=== PATIENT | female | born 1955 | race Caucasian/White ===

== ENCOUNTER 2018-10-16 12:45 | Emergency (ER) | payer MEDICAID ==
[2018-10-16] MEDS ORDERED: Acetaminophen 500 MG TAB ONE (13:12)
--- NOTE | 2018-10-16 13:17 | ED Physician Chart ---
ED Chief Complaint/HPI - Patient Information Date Seen:: 10/16/18 Time Seen:: 13:05 Chief Complaint:: dizziness History of Present Illness:: 5 days ago patient had a sharp right lower quadrant pain followed by headache and dizziness which she describes as a spinning sensation. The right lower quadrant pain has not recurred. Patient is ambulatory but sometimes needs some assistance with ambulation Vitals:: Vital Signs - 8 hr 10/16/18 12:54 HR 68 RR 18 BP 112/66 O2 Sat % 97 Historian:: Patient, Family Member Review:: Nurse's Note Reviewed ED Review of Systems - Review of Systems General/Constitutional: No fever, No chills Skin: No skin lesions Head: No headache Eyes: No loss of vision ENT: No earache Neck: No neck pain Cardio Vascular: No chest pain, No palpitations Pulmonary: No SOB GI: No nausea, No vomiting, No diarrhea Musculoskeletal: No bone or joint pain Psychiatric: No prior psych history, No depression Hematopoietic: No bruising Allergic/Immuno: No urticaria Neurological: No syncope, No focal symptoms, Headache, Vertigo ED Past Medical History - Past Medical History Past Medical History: Thyroid disorder, Other (hypothyroidism) Family History: None Social History: Non Smoker, No Alcohol Surgical History: other (hernia.) Psychiatricy History: None Medication: Reviewed Family Medical History - Family Member Mother History Unknown: Yes ED Physical Exam - Physical Examination General/Constitutional: Awake, Well-developed, well-nourished, Alert, No distress, GCS 15, Non-toxic appearing, Ambulatory Head: Atraumatic Eyes: Lids, conjuctiva normal, PERRL, EOMI Other Eyes comments:: No nystagmus Skin: Nl inspection, No rash, No skin lesions, No ecchymosis, Well hydrated, No lymphadenopathy ENMT: External ears, nose nl, Nasal exam nl, Lips, teeth, gums nl Neck: Nontender, Full ROM w/o pain, No JVD, No nuchal rigidity, No bruit, No mass, No stridor Respiratory: Nl effort/Exclusion, Clear to Auscultation, No Wheeze/Rhonchi/Rales Cardio Vascular: RRR, No murmur, gallop, rubs, NL S1 S2 GI: No tenderness/rebounding/guarding, No organomegaly, No hernia, Normal BS's, Nondistended, No mass/bruits, No McBurney tenderness : No CVA tenderness Extremities: No tenderness or effusion, Full ROM, normal strength in all extremities, No edema, Normal digits & nails Neuro/Psych: Alert/oriented, Judgement/insight normal, Mood normal, Normal gait , No focal deficits Misc: Normal back, No paraspinal tenderness ED Labs/Radiology/EKG Results - Lab Results Results: Laboratory Results WBC 3.5 Th/cmm (4.8-10.8) L 10/16/18 13:09 RBC 4.25 Mil/cmm (3.80-5.10) 10/16/18 13:09 Hgb 12.1 gm/dL (12-16) 10/16/18 13:09 Hct 36.9 % (41.0-60) L 10/16/18 13:09 MCV 86.8 fl (81-100) 10/16/18 13:09 MCH 28.5 pg (27.0-31.0) 10/16/18 13:09 MCHC Differential 32.9 pg (28.0-36.0) 10/16/18 13:09 RDW 12.5 % (11.5-20.0) 10/16/18 13:09 Plt Count 185 Th/cmm (150-400) 10/16/18 13:09 MPV 8.7 fl 10/16/18 13:09 Neutrophils % 28.6 % (40.0-80.0) L 10/16/18 13:09 Lymphocytes % 52.5 % (20.0-50.0) H 10/16/18 13:09 Monocytes % 11.8 % (2.0-10.0) H 10/16/18 13:09 Eosinophils % 6.6 % (0.0-5.0) H 10/16/18 13:09 Basophils % 0.5 % (0.0-2.0) 10/16/18 13:09 Sodium 140 mEq/L (136-145) 10/16/18 13:09 Potassium 4.6 mEq/L (3.5-5.1) 10/16/18 13:09 Chloride 105 mEq/L (98-107) 10/16/18 13:09 Carbon Dioxide 26.6 mEq/L (21.0-31.0) 10/16/18 13:09 Anion Gap 13.0 (7.0-16.0) 10/16/18 13:09 BUN 11 mg/dL (7-25) 10/16/18 13:09 Creatinine 0.6 mg/dL (0.6-1.2) 10/16/18 13:09 Est GFR ( Amer) > 60.0 ml/min (>90) 10/16/18 13:09 Est GFR (Non-Af Amer) > 60.0 ml/min 10/16/18 13:09 BUN/Creatinine Ratio 18.3 10/16/18 13:09 Glucose 97 mg/dL (70-105) 10/16/18 13:09 Calcium 9.6 mg/dL (8.6-10.3) 10/16/18 13:09 Magnesium 2.2 mg/dL (1.9-2.7) 10/16/18 13:09 - Radiology Results Results: CT head negative ED Assessment - Assessment General Assessment: At the end of the history and physical examination I gently left and right rotated the patient's neck about 80 (both directions).. She reportedly felt less dizzy after the procedure and before the Antivert was given ED Septic Shock - . Is Septic Shock (SBP<90, OR Lactate>4 mmol\L) present?: No - <6hrs of presentation: Vital Signs: Vital Signs - 8 hr 10/16/18 12:54 HR 68 RR 18 BP 112/66 O2 Sat % 97 ED Reassessment (Disposition) - Reassessment Reassessment Condition:: Improved - Diagnosis Diagnosis:: Benign positional vertigo - Aftercare/Follow up Instructions Aftercare/Follow-Up Instructions:: Refer to Discharge Instructions Medication Prescribed:: Antivert 25 mg #20 to take 1 3 times a day - Patient Disposition Discharge/Transfer:: Home Condition at Disposition:: Stable, Improved
[2018-10-16 13:22] LABS: HEMOGLOBIN 12.1 gm/dL (12-16); PLATELET COUNT 185 Th/cmm (150-400)
[2018-10-16 13:27] LABS: HEMATOCRIT 36.9 % (41.0-60); MEAN CELL VOLUME 86.8 fl (81-100); MEAN CORPUSCULAR HEMOGLOBIN 28.5 pg (27.0-31.0); MEAN CORPUSCULAR HGB CONC 32.9 pg (28.0-36.0); MEAN PLATELET VOLUME 8.7 fl; RED BLOOD COUNT 4.25 Mil/cmm (3.80-5.10); RED CELL DISTRIBUTION WIDTH 12.5 % (11.5-20.0)
[2018-10-16 13:31] LABS: WHITE BLOOD COUNT 3.5 Th/cmm (4.8-10.8)
[2018-10-16 13:38] LABS: BUN - UREA NITROGEN 11 mg/dL (7-25); CALCIUM SERUM 9.6 mg/dL (8.6-10.3); CARBON DIOXIDE 26.6 mEq/L (21.0-31.0); CHLORIDE 105 mEq/L (98-107); CREATININE - SERUM 0.6 mg/dL (0.6-1.2); GFR AFRICAN-AMERICAN > 60.0 ml/min (>90); GFR NON AFRICAN-AMERICAN > 60.0 ml/min; GLUCOSE 97 mg/dL (70-105); MAGNESIUM 2.2 mg/dL (1.9-2.7); POTASSIUM SERUM 4.6 mEq/L (3.5-5.1); SODIUM SERUM 140 mEq/L (136-145)
[2018-10-16 14:04] LABS: BASOPHIL 2 % (0-3); EOSINOPHIL 6 % (0-5); LYMPHOCYTE 58 % (20-50); MONOCYTE 7 % (2-10); NEUTROPHILS 27 % (40-80); PLATELET ESTIMATE ADEQUATE (NORMAL)
[2018-10-16 14:05] LABS: URINE SOURCE MIDSTREAM
[2018-10-16 14:07] LABS: URINE BILIRUBIN NEGATIVE (NEGATIVE); URINE BLOOD MODERATE (NEGATIVE); URINE GLUCOSE (UA) NEGATIVE (NEGATIVE); URINE KETONE NEGATIVE (NEGATIVE); URINE LEUKOCYTE ESTERASE TRACE (NEGATIVE); URINE MICROSCOPIC INDICATED? YES; URINE NITRATE NEGATIVE (NEGATIVE); URINE PROTEIN NEGATIVE (NEGATIVE); URINE UROBILINOGEN 0.2 E.U./dL (0.2 - 1.0)
--- NOTE | 2018-10-16 14:11 | Diagnostic Imaging Report ---
CT scan of the brain without intravenous contrast HISTORY: Dizziness Total DLP equals 618 CTDI equals 35.9 Axial sections were obtained from the base of the skull to the vertex. There is a normal ventricular system size. No acute parenchymal abnormalities. No intracerebral hemorrhage. No mass effect or shift of midline structures. There is prominence of the CSF space about the history of fossa reflecting a mild degree of cerebellar atrophy. IMPRESSION: 1. No acute abnormalities 2. Findings consistent with a mild degree of cerebellar atrophy 3. Small mucosal density within the right maxillary sinus. This may represent focal mucosal thickening. A small mucosal polyp or cyst cannot be excluded.
[2018-10-16 14:12] LABS: URINE CLARITY CLEAR (CLEAR); URINE COLOR YELLOW
[2018-10-16 14:34] LABS: URINE RBC 0-2 /hpf (0-5)
[2018-10-16 14:35] LABS: URINE BACTERIA FEW /hpf (NONE SEEN); URINE EPITHELIAL CELLS FEW /lpf (FEW)
== END 2018-10-16 15:08 | disposition home or self-care (01) ==
LOC: ER 12:45
DX: H81.10 Benign paroxysmal vertigo, unspecified ear (principal); E07.9 Disorder of thyroid, unspecified
CPT/HCPCS: 36415-UA; 70450-TC; 80048-TC; 81001-TC; 83735-TC; 85007-TC; 85025-TC; 87086-90; Z7502; Z7610